=== PATIENT | male | born 1980 | race African-American/Black ===

== ENCOUNTER 2019-11-30 12:32 | Emergency (ER) | payer OTHER ==
[~2019-11-30] VITALS: Ht 182.9 cm; Wt 98.0 kg
[2019-11-30 12:33] VITALS: BP 116/88
== END 2019-11-30 13:40 | disposition home or self-care (01) ==
LOC: EMS 12:33
DX: Z03.818 Encounter for observation for suspected exposure to other biological agents ruled out (principal)
CPT/HCPCS: 99283; U0003